=== PATIENT | female | born 1960 | race Caucasian/White ===

== ENCOUNTER 2017-08-26 18:29 | Emergency (ER) | payer OTHER ==
[~2017-08-26] VITALS: Ht 177.8 cm; Wt 88.0 kg
[~2017-08-26 18:29] MED LIST: AMIT25; AMIT50 PO; AMOX500 PO; ASPI81EC PO; BUPR1 PO; BUSP5 PO; BUTRANS TD; CIPR500 PO; CITA20; CITA20 PO; CLON1 PO; CODACE30 PO; CYCL10 PO; DIAZ5 PO; DICL75ER PO; DOCU100 PO; DULO30; DULO30 PO; Desyrel50 MG PO; ESCI10; ESTR1 PO; FLUO10 PO; FLUO20 PO; GABA300 PO; GABA600 PO; HYDACE5; HYDACE5 PO; HYDMOR2 PO; HYDMOR4 PO; LAVAP17G PO; LEVFLO500 PO; LEVSOD125 PO; LEVSOD150 PO; LEVSOD50 PO; LIDO5TP TOP; LISHYD1012 PO; LISI5 PO; LORA.5; LORA2 PO; Lopressor 25 mg25 MG PO; Lovastatin20 MG PO; MONT10T PO; Macrobid 100 M100 MG PO; NORT10 PO; NORT75 PO; Norco 10-325 T1 EACH PO; Norco 5-325 Ta1 EACH PO; OXYACE5T PO; PHENA200 PO; PROM25 PO; Percocet 5-3251 EACH PO; Prilosec Otc20 MG PO; RISP.5 PO; RXHYDMOR2 PO; RXLORA1 PO; RXOXYACE PO; RXPHEN200 PO; TENEX; TRAM50 PO; TRAZ50; TRAZ50 PO; VARE1; Vistaril50 MG PO; Vitamin D2000 UNIT PO; ZOLP10 PO; Zofran Odt4 MG PO; [UNRECOGNIZED DRUG - OTHER]; [UNRECOGNIZED DRUG - OTHER]; [UNRECOGNIZED DRUG - REMARK]
[2017-08-26] MEDS ORDERED: Norco 5-325 Ta1 EACH PO (19:55)
== END 2017-08-26 20:13 | disposition home or self-care (01) ==
LOC: ER 18:29
DX: S62.630A Displaced fracture of distal phalanx of right index finger, initial encounter for closed fracture (principal); I10 Essential (primary) hypertension; F17.200 Nicotine dependence, unspecified, uncomplicated; W22.8XXA Striking against or struck by other objects, initial encounter; Z88.8 Allergy status to other drugs, medicaments and biological substances; Z88.2 Allergy status to sulfonamides; Z79.899 Other long term (current) drug therapy; Z85.41 Personal history of malignant neoplasm of cervix uteri; Z85.850 Personal history of malignant neoplasm of thyroid
CPT/HCPCS: 29125; 99283

== ENCOUNTER 2018-02-02 21:01 | Observation (INO) | payer OTHER ==
[~2018-02-02] VITALS: Ht 177.8 cm; Wt 88.5 kg
[2018-02-02 21:37] LABS: BASOPHILS ABSOLUTE AUTO 0.21 K/mm3 (0.00-0.23); BASOPHILS PERCENT AUTO 2 % (0-2); EOSINOPHILS ABSOLUTE AUTO 0.14 K/mm3 (0.00-0.68); EOSINOPHILS PERCENT AUTO 1 % (0-6); Hematocrit 42.7 % (33.0-51.0); Mean Corpuscular HGB 32.5 pg (26.0-34.0); Mean Corpuscular HGB Conc 35.1 g/dL (31.5-36.5); Mean Corpuscular Volume 92 fL (80-100); Mean Platelet Volume 10.6 fL (9.1-12.4); Platelet Count 464 K/mm3 (150-400); RDW Coefficient Variation 12.9 % (11.7-14.2); RDW Standard Deviation 43.5 fL (35.1-46.3); Red Blood Cell Count 4.62 M/mm3 (3.80-5.20); Source, Urine Clean Catch; White Blood Cell Count 10.47 K/mm3 (4.00-11.30)
[2018-02-02 21:40] LABS: IMMATURE GRAN ABSOLUTE AUTO 0.04 K/mm3 (0.00-0.10); IMMATURE GRAN PERCENT AUTO 0 % (0-1); LYMPHOCYTES PERCENT AUTO 40 % (21-46); MONOCYTES ABSOLUTE AUTO 0.75 K/mm3 (0.16-1.47); MONOCYTES PERCENT AUTO 7 % (4-13); NEUTROPHILS ABSOLUTE AUTO 5.13 K/mm3 (1.96-9.15); NEUTROPHILS PERCENT AUTO 49 % (41-73)
[2018-02-02] MEDS ORDERED: Risperdal0.5 MG PO (21:53)
[2018-02-02] MEDS ORDERED: PROM25 (21:53)
[2018-02-02] MEDS ORDERED: PRAZ2 PO (21:53)
[2018-02-02] MEDS ORDERED: METCAR500 PO (21:55)
[2018-02-02] MEDS ORDERED: NAPR500 PO (21:55)
[2018-02-02] MEDS ORDERED: SERT100 PO (21:55)
[2018-02-02 21:56] LABS: Bilirubin, Urine Neg (Neg); Blood, Urine 2+ (Neg); Glucose Qualitative, Urine 1+ (Neg); Ketones, Urine 1+ (Neg); Leukocyte Esterase, Urine Neg (Neg); Nitrite, Urine Neg (Neg); Protein, Urine 3+ (Neg); Urobilinogen, Urine NORM (Normal)
[2018-02-02] MEDS ORDERED: Zanaflex4 M1 PO (21:56)
[2018-02-02] MEDS ORDERED: ACET500 (21:56)
[2018-02-02 21:58] LABS: Alanine Aminotransfer (ALT/SGP 26 U/L (12-78); Albumin, Blood 4.1 g/dL (3.4-5.0); Albumin/Globulin Ratio 1.1 (0.8-1.8); Alk Phos 116 U/L (50-136); Anion Gap 9 mmol/L (6-16); Aspartate Aminotrans (AST/SGOT 15 U/L (12-37); Bilirubin, Total 0.3 mg/dL (0.1-1.0); Blood Urea Nitrogen 18 mg/dL (8-24); Bun/Creatinine Ratio 24.9 (12.0-20.0); CO2, Blood 25 mmol/L (21-32); Calcium, Blood 9.4 mg/dL (8.5-10.1); Chloride, Blood 105 mmol/L (98-108); Creatinine, Blood 0.72 mg/dL (0.40-1.00); Ethanol (Alcohol), Blood, Med <3 mg/dL; Globulin, Blood 3.9 g/dL (2.2-4.0); Glomerular Filtration Rate >60 (60-); Glucose, Blood 188 mg/dL (70-99); Potassium, Blood 3.8 mmol/L (3.5-5.5); Salicylate 4.5 mg/dL (2.8-20.0); Sodium, Blood 139 mmol/L (136-145); Thyroxine (T4) 9.7 ug/dL (4.8-13.9)
[2018-02-02] MEDS ORDERED: ESTRADIOL (22:02)
[2018-02-02] MEDS ORDERED: ACETAMINOPHEN (22:03)
[2018-02-02] MEDS ORDERED: DIPHENHYDRAMINE (22:03)
[2018-02-02 22:05] LABS: Acetaminophen, Random <2.0 ug/mL (10.0-30.0)
[2018-02-02 22:07] LABS: U Amphetamine Screen Not Detected; U Barbituate Screen Not Detected; U Benzodiazapine Screen Not Detected; U Buprenorphine Screen Not Detected; U Cannabinoids Screen DETECTED; U Cocaine Screen Not Detected; U Methadone Screen Not Detected; U Methamphetamine Screen Not Detected; U Opiates Screen Not Detected; U Oxycodone Screen Not Detected; U Phencyclidine Screen Not Detected; U Propoxyphene Screen Not Detected
[2018-02-02 22:09] LABS: Appearance, Urine Hazy (Clear); Color, Urine Yellow (P-Yellow)
[2018-02-02 22:10] LABS: Red Blood Cells, Urine 0-2 /hpf (0-2); White Blood Cells, Urine 0-2 /hpf (0-5)
[2018-02-02 22:11] LABS: Bacteria Many /hpf; Calcium Oxalate Crystals Many /hpf; Squamous Epithelial Cells Mod /hpf (Few)
[2018-02-02 22:36] LABS: Free Thyroxine 0.91 ng/dL (0.70-1.60)
[2018-02-02 22:38] LABS: Triiodothyronine, Free 1.78 pg/mL (2.18-3.98)
[2018-02-03] MEDS ORDERED: MIRT15 PO (10:30)
[2018-02-03] MEDS ORDERED: Naprosyn500 MG PO (10:32)
[2018-02-03] MEDS ORDERED: PRAZ2 PO (10:33)
[2018-02-03] MEDS ORDERED: LEVSOD137 PO (10:33)
[2018-02-03] MEDS ORDERED: PROM25 PO (10:33)
[2018-02-03] MEDS ORDERED: LOSA50 PO (10:34)
[2018-02-03] MEDS ORDERED: CLIMARA1 PATCH.W1 TD (10:35)
[2018-02-03] MEDS ORDERED: DICL25ER TOP (10:36)
[2018-02-03] MEDS ORDERED: TIZANIDINE HCL4 MG PO (10:37)
[2018-02-03] MEDS ORDERED: NICO21TP TOP (11:09)
== END 2018-02-03 12:14 | disposition home or self-care (01) ==
LOC: ER 21:01 → EOR 21:02
PROVIDERS: Physician Assistant
DX: R45.851 Suicidal ideations (principal); R45.850 Homicidal ideations; F32.9 Major depressive disorder, single episode, unspecified; F17.210 Nicotine dependence, cigarettes, uncomplicated; I10 Essential (primary) hypertension; M79.7 Fibromyalgia; Z85.41 Personal history of malignant neoplasm of cervix uteri; Z85.850 Personal history of malignant neoplasm of thyroid; Z88.2 Allergy status to sulfonamides; Z88.8 Allergy status to other drugs, medicaments and biological substances; Z91.048 Other nonmedicinal substance allergy status; Z79.899 Other long term (current) drug therapy; Z60.9 Problem related to social environment, unspecified
CPT/HCPCS: 36415; 80053; 81001; 81025; 84436; 84439; 84443; 84481; 85025; 87086; 99285; G0378; G0480; Q3014

== ENCOUNTER → 2020-07-03 | Outpatient (CLI) | payer OTHER, BC ==
[~2020-07-03] MED LIST changes: +ACET500; +ACETAMINOPHEN; +CLIMARA1 PATCH.W1 TD; +DICL25ER TOP; +DIPHENHYDRAMINE; +ESTRADIOL; +LEVSOD137 PO; +LOSA50 PO; +METCAR500 PO; +MIRT15 PO; +NAPR500 PO; +NICO21TP TOP; +Naprosyn500 MG PO; +PRAZ2 PO; +PROM25; +Risperdal0.5 MG PO; +SERT100 PO; +TIZANIDINE HCL4 MG PO; +Zanaflex4 M1 PO
[2020-07-03 19:13] LABS: Bilirubin, Urine Neg (Neg); Blood, Urine 1+ (Neg); Glucose Qualitative, Urine Neg (Neg); Ketones, Urine 1+ (Neg); Leukocyte Esterase, Urine 2+ (Neg); Nitrite, Urine Neg (Neg); Protein, Urine 2+ (Neg); Specific Gravity, Urine 1.025 (1.003-1.022); Urobilinogen, Urine NORM (Normal)
[2020-07-03 19:51] LABS: Appearance, Urine Clear (Clear); Color, Urine Yellow (P-Yellow)
[2020-07-03 19:52] LABS: Bacteria Mod /hpf; Red Blood Cells, Urine Rare /hpf (0-2); Squamous Epithelial Cells Few /hpf (Few); White Blood Cells, Urine 0-2 /hpf (0-5)
[2020-07-03 19:53] LABS: Calcium Oxalate Crystals Mod /hpf
== END | disposition home or self-care (01) ==
LOC: LAB SHORT 17:49 → LAB 17:49
PROVIDERS: Physician Assistant
DX: E11.9 Type 2 diabetes mellitus without complications (principal); R30.0 Dysuria
CPT/HCPCS: 81001; 87077; 87086; 87186

== ENCOUNTER → 2020-10-30 | Outpatient (CLI) | payer BC ==
[~2020-10-30] MED LIST changes: +BUPRENORPHINE HC2 M1 SL; +LEVSOD100 PO; +METF500C
[2020-11-01 15:10] LABS: HPV 16 Negative (Negative); HPV 18 Negative (Negative); HPV OTHER HR TYPES Negative (Negative)
== END | disposition home or self-care (01) ==
LOC: LAB SHORT 16:00 → LAB SRC 16:00 → LAB SHORT 10-31 11:33
PROVIDERS: Nurse Practitioner Family
DX: Z01.419 Encounter for gynecological examination (general) (routine) without abnormal findings (principal); R35.0 Frequency of micturition
CPT/HCPCS: 87077; 87086; 87186; 87624; G0123

== ENCOUNTER 2020-11-19 06:05 | Day surgery (SDC) | payer BC, MEDICARE ==
[~2020-11-19] VITALS: Ht 177.8 cm; Wt 87.2 kg
[~2020-11-19 06:05] MED LIST changes: -BUPRENORPHINE HC2 M1 SL
[2020-11-19] MEDS ORDERED: BUPRENORPHINE HC2 M1 SL (07:13)
[2020-11-19] MEDS ORDERED: CYCL10 PO (07:14)
[2020-11-19] MEDS ORDERED: Vistaril50 MG PO (07:14)
--- NOTE | 2020-11-19 07:50 | NUR ---
11/19/20 0750 Sarah Mesa 0.15CC EPI ADDED TO 30CC 0.5% MARCAINE=0.5% MARCAINE WITH EPI 1:200,000.
--- NOTE | 2020-11-19 09:51 | NUR ---
11/19/20 0951 Krystal Diallo ON ARRIVAL TO SDU PT IS DROWSY, SHE CONTINUES TO DOZE OFF. SHE IS PLACED ON 2L O2 VIA NC FOR SATS THAT ARE RUNNING 88-91% WITHOUT CONSTANT REMINDERS TO TAKE DEEP BREATHS. WITH THE OXYGEN SHE IS 92-96% DEPENDING ON IF SHE IS SNORING OR NOT. WILL CONTINUE OXYGEN WHILE SHE IS STILL WAKING UP. NO COMPLAINTS OF PAIN OR NAUSEA AT THIS TIME. CALL LIGHT IS IN REACH.
== END 2020-11-19 10:41 | disposition home or self-care (01) ==
LOC: ORSCSDS 06:05
PROVIDERS: Podiatrist Foot & Ankle Surgery
PROC: 0QSP04Z Reposition Left Metatarsal with Internal Fixation Device, Open Approach (ICD-10-PCS; principal; 2020-11-19 07:30)
PROC: 0QSR04Z Reposition Left Toe Phalanx with Internal Fixation Device, Open Approach (ICD-10-PCS; principal; 2020-11-19 07:30)
DX: M20.12 Hallux valgus (acquired), left foot (principal); I10 Essential (primary) hypertension; E11.9 Type 2 diabetes mellitus without complications; G47.33 Obstructive sleep apnea (adult) (pediatric); E78.5 Hyperlipidemia, unspecified; Z79.899 Other long term (current) drug therapy; Z87.891 Personal history of nicotine dependence
CPT/HCPCS: 82947; A9270; C1713; J0171; J0690; J1100; J1885; J2001; J2250; J2370; J2405; J2704; J3010; J7120

== ENCOUNTER → 2021-06-11 | Outpatient (CLI) | payer BC, MEDICARE ==
[~2021-06-11] MED LIST changes: +BUPRENORPHINE HC2 M1 SL
== END | disposition home or self-care (01) ==
LOC: LAB SHORT 19:24 → LAB 19:24
DX: R30.0 Dysuria (principal)
CPT/HCPCS: 87077; 87086; 87186

== ENCOUNTER → 2022-06-18 | Outpatient (CLI) | payer BC, MEDICARE ==
[2022-06-21 13:19] LABS: Stool Occult Bld Immuno 1 Negative (NEGATIVE)
== END ==
LOC: LAB 13:34 → LAB SHORT 13:34
PROVIDERS: Nurse Practitioner Family
DX: Z12.11 Encounter for screening for malignant neoplasm of colon (principal); Z12.12 Encounter for screening for malignant neoplasm of rectum
CPT/HCPCS: G0328